=== PATIENT | female | born 1975 | race Two or more races ===

== ENCOUNTER 2017-07-19 14:32 | Day surgery (SDC) | payer BC ==
[~2017-07-19] VITALS: Ht 162.6 cm; Wt 71.0 kg
[~2017-07-19 14:32] MED LIST: BUPIVACAINE/PF-EPI 0.25% 1:200K ONE; FENTANYL PF 100 MCG/2ML ONE; MIDAZOLAM 1 MG/ML, 2ML ONE
[2017-07-19 14:44] VITALS: BP 111/65
[2017-07-19] MEDS ORDERED: NO MEDICATIONS (14:45)
[2017-07-19] MEDS ORDERED: HYDROmorphone 1 MG/ML, 1ML IV PRN (15:00)
[2017-07-19] MEDS ORDERED: hydrALAzine 20 MG/ML, 1ML IV PRN (15:00)
[2017-07-19] MEDS ORDERED: OXYcodone 5 MG/5 ML ORAL.SOL UDC PO PRN (15:00)
[2017-07-19] MEDS ORDERED: LABETALOL 5MG/ML, 20ML IV PRN (15:00)
[2017-07-19] MEDS ORDERED: MEPERIDINE/PF 25MG/0.5ML IVPush PRN (15:00)
[2017-07-19] MEDS ORDERED: ONDANSETRON 2MG/ML, 2ML IVPush PRN (15:00)
[2017-07-19] MEDS ORDERED: ACETAMINOPHEN 325 MG TABLET PO PRN (15:00)
[2017-07-19] MEDS ORDERED: FENTANYL PF 100 MCG/2ML IV PRN (15:00)
[2017-07-19] MEDS ORDERED: PROMETHAZINE 25 MG/ML, 1ML IV PRN (15:00)
[2017-07-19] MEDS ORDERED: LACTATED RINGERS 1,000 ML IV SCH (15:13)
[2017-07-19 15:26] LABS: HCG UR OBC PASS
[2017-07-19] MEDS ORDERED: PLEASE ENTER HEIGHT AND WEIGHT MC SCH (15:30)
[2017-07-19] MEDS ORDERED: CEFAZOLIN 1,000 MG ONE (15:30)
[2017-07-19] MEDS ORDERED: PROPOFOL 10 MG/ML, 20ML ONE (15:30)
[2017-07-19] MEDS ORDERED: DEXAMETHASONE 4 MG/ML, 1ML ONE (15:30)
[2017-07-19] MEDS ORDERED: ONDANSETRON 2MG/ML, 2ML ONE (15:30)
[2017-07-19] MEDS ORDERED: KETOROLAC 30 MG/1 ML ONE (15:30)
[2017-07-19] MEDS ORDERED: OXYcodone 5 MG/5 ML ORAL.SOL UDC ONE (16:12)
== END 2017-07-19 16:56 ==
LOC: MERGE 14:32 → OUT 14:32 → 3WST 16:55 → OUT 16:56
PROVIDERS: ATTEND Obstetrics & Gynecology Female Pelvic Medicine and Reconstructive Surgery
DX: N92.1 Excessive and frequent menstruation with irregular cycle (principal); N85.02 Endometrial intraepithelial neoplasia [EIN]; D64.9 Anemia, unspecified; Z98.890 Other specified postprocedural states
CPT/HCPCS: 58558; 81025; 88305; J0690; J1100; J1885; J2250; J2405; J2704; J3010; J7120